=== PATIENT | female | born 1950 | race Caucasian/White ===

== ENCOUNTER 2016-09-23 15:35 | Emergency (ER) | payer BC | END 2016-09-23 18:24 | disposition home or self-care (01) | LOC: ER1 15:35 | DX: S60.512A Abrasion of left hand, initial encounter (principal); W31.89XA Contact with other specified machinery, initial encounter; E03.9 Hypothyroidism, unspecified; Y92.009 Unspecified place in unspecified non-institutional (private) residence as the place of occurrence of the external cause; Z79.899 Other long term (current) drug therapy | CPT/HCPCS: 99283 ==